=== PATIENT | female | born 2000 | race African-American/Black ===

== ENCOUNTER 2021-07-10 14:44 | Emergency (ER) | payer SELFPAY ==
[2021-07-10 15:38] LABS: Urine Blood Negative (Negative); Urine Glucose Negative (Negative); Urine Protein Negative (Negative); Urine Specific Gravity 1.025 (1.005-1.030)
[2021-07-10 15:41] LABS: Absolute Lymphocytes (CBC) 1.7 K/uL (0.7-4.9); Basophils % 0.5 % (0-1.3); Hematocrit 39.8 % (36.0-45.0); MPV 9.6 fL (7.6-11.3); RBC Red Blood Cell Count 4.97 M/uL (3.86-4.86)
[2021-07-10 15:44] LABS: Protime INR 1.07
[2021-07-10 15:50] LABS: Urine Specific Gravity/Preg 1.025 (1.005-1.030)
[2021-07-10 16:18] LABS: ALT/SGPT 16 U/L (12-78); AST/SGOT 13 U/L (15-37); Albumin 4.1 g/dL (3.4-5.0); Alkaline Phosphatase 89 U/L (45-117); BUN Blood Urea Nitrogen 8 mg/dL (7-18); Bicarbonate 28 mmol/L (21-32); Bilirubin Direct 0.1 mg/dL (0-0.2); Bilirubin Total 0.4 mg/dL (0.2-1.0); Glucose Level 76 mg/dL (74-106); Protein, Total 9.2 g/dL (6.4-8.2); Sodium Level 140 mmol/L (136-145)
[2021-07-10 16:18] LABS: Barbiturates NEGATIVE (NEGATIVE); Benzodiazepines NEGATIVE (NEGATIVE); Cocaine NEGATIVE (NEGATIVE); METHAMPHETAM NEGATIVE (NEGATIVE); Methadone NEGATIVE (NEGATIVE); Opiates NEGATIVE (NEGATIVE); Phencyclidine NEGATIVE (NEGATIVE)
[2021-07-10 16:40] LABS: THC Cannibis POSITIVE (NEGATIVE)
--- NOTE | 2021-07-10 21:52 | ER ---
Nurse's Notes [facility] Name: Yamilka Gonzales Age: 20 yrs Sex: Female : 2000 Arrival Date: 07/10/2021 Time: 14:49 Bed 16 Private MD: Diagnosis: Major depressive disorder, recurrent, mild;Suicidal ideations;Schizophrenia, unspecified Presentation: 07/10 14:56 Chief complaint: Patient states: was at the [facility] and told her psychiatrist iw that she has been having thoughts of killing herself for a couple of weeks , has tried to hurt herself in the past, tried to use a knife but it was dull , is currently on Seroquel and another med but she doesn't take it every day , hx of depression anger issues, and adhd. Coronavirus screen: At this time, the client does not indicate any symptoms associated with coronavirus-19. Ebola Screen: Patient negative for fever greater than or equal to 101.5 degrees Fahrenheit, and additional compatible Ebola Virus Disease symptoms Patient denies exposure to infectious person. Patient denies travel to an Ebola-affected area in the 21 days before illness onset. No symptoms or risks identified at this time. Initial Sepsis Screen: Does the patient meet any 2 criteria? No. Patient's initial sepsis screen is negative. Does the patient have a suspected source of infection? No. Patient's initial sepsis screen is negative. Risk Assessment: Do you want to hurt yourself or someone else? Patient reports no desire to harm self or others. Onset of symptoms was July 10, 2021. 14:56 Method Of Arrival: Law Enforcement: [facility] iw 14:56 Acuity: [place] 2 iw 15:18 Note pt told [facility] and [place] [employer] that she is hearing voices that are telling her iw to kill herself. Triage Assessment: 15:27 General: Appears in no apparent distress. Behavior is calm, cooperative, appropriate kd3 for age. 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 - Social history:: Smoking status: Patient reports the use of cigarette tobacco products, cigars, Patient uses alcohol, occasionally. street drugs, marijuana, has not smoked marijuana in two weeks . Screenin:26 Nutritional screening: No deficits noted. Tuberculosis screening: No symptoms or risk kd3 factors identified. Fall Risk IV access (20 points). 15:38 Abuse screen: Denies threats or abuse. Denies injuries from another. kd3 Assessment: 15:26 Pain: Denies pain. kd3 16:22 Reassessment: pt affirms that she is not currently actively suicidal, however she has kd3 stated that she has had suicidal ideation recently and is concern about her future stat of mind. 17:50 Reassessment: pt currently speaking to [employer] screener on the ipad. bp 18:12 Reassessment: [employer] screener spoke with provider regarding plan. bp 19:31 Reassessment: pt awake and alert, resting quietly, awaiting placement in psychiatric bb facility. 20:00 Reassessment: Dr Arnett at bedside pt states she does not feel suicidal any longer bb she is just going through a hard time and wants to go home to follow up with her psychiatrist. Pt's mother called but no answer. 22:35 Reassessment: Received report from Lillian, thomas resting, rr even and unlabored, call lc1 roque within reach . 23:30 Reassessment: No changes from previously documented assessment. pt still sleeping, lc1 safety measures in place . 07/11 00:30 Reassessment: No changes from previously documented assessment. pt still resting, rr lc1 even and unlabored, call roque within reach. 01:30 Reassessment: No changes from previously documented assessment. pt states she wants her lc1 grandmother Naz to be called, phone number given. 01:50 Reassessment: Grandmother Naz called to update on patient and seek out info on how lc1 to contact mom Claribel. [address] call made with nurse, Naz \\China\\ Claribel. Both agreed that they didn't feel like it was safe for patient to come home and stated they would not come pick her up at patient's request. They elaborated that her depression comes on quickly and then leaves as fast as it comes so she seems okay then the situation repeats itself the next day. Nothing will be resolved unless she gets help and are requesting that we go forward with plans to transfer to psych facility. MD Dr Arnett informed. 02:30 Reassessment: No changes from previously documented assessment. patient awake, watching lc1 tv. 03:30 Reassessment: No changes from previously documented assessment. Patient and/or family lc1 updated on plan of care and expected duration. Pain level reassessed. rr even and unlabored. 04:30 Reassessment: No changes from previously documented assessment. Patient and/or family lc1 updated on plan of care and expected duration. Pain level reassessed. 05:30 Reassessment: No changes from previously documented assessment. Patient and/or family lc1 updated on plan of care and expected duration. Pain level reassessed. patient sleeping. 06:30 Reassessment: No changes from previously documented assessment. Patient and/or family lc1 updated on plan of care and expected duration. Pain level reassessed. pt sleeping, safety measures in place, awaiting placement. 08:57 Reassessment: No changes from previously documented assessment. Patient and/or family ap3 updated on plan of care and expected duration. Pain level reassessed. patient resting eyes closed, respirations even and unlabored. 10:40 Reassessment: mother of patient arrived to patients bedside. ap3 13:03 Reassessment: No changes from previously documented assessment. Patient and/or family ap3 updated on plan of care and expected duration. Pain level reassessed. 15:24 Reassessment: No changes from previously documented assessment. Patient and/or family ap3 updated on plan of care and expected duration. Pain level reassessed. Patient denies pain at this time. 16:44 Reassessment: No changes from previously documented assessment. Patient and/or family ap3 updated on plan of care and expected duration. Pain level reassessed. 18:57 Reassessment: No changes from previously documented assessment. Patient and/or family ap3 updated on plan of care and expected duration. Pain level reassessed. 19:13 Reassessment: Patient appears in no apparent distress at this time. Patient is alert, vg1 oriented x 3, equal unlabored respirations, skin warm/dry/pink. pt was given a beverage. Patient denies pain at this time. 20:45 Reassessment: Pt resting with eyes closed at this time. vg1 22:20 Reassessment: Patient appears in no apparent distress at this time. No changes from vg1 previously documented assessment. 23:20 Reassessment: Patient appears in no apparent distress at this time. Pt resting with vg1 eyes closed. 07/12 00:20 Reassessment: Patient resting in bed, not in apparent distress, eyes closed. fu 02:50 Reassessment: No changes from previously documented assessment. fu 05:15 Reassessment: Patient awake, voided in the restroom. fu 07:00 Reassessment: Patient appears in no apparent distress at this time. Patient and/or jl7 family updated on plan of care and expected duration. Pain level reassessed. Patient is alert, oriented x 3, equal unlabored respirations, skin warm/dry/pink. Pt sitting in bed, denies discomfort at this time. Patient denies pain at this time. 09:00 Reassessment: Pt inquiring about transfer status, states "I'm going crazy in here." Pt mateo denies SI and reports she wants to leave due to transfer taking such a long time. Pt's Grandmother, Naz Gonzales ([phone]), called and reports pt doesn't need to be allowed to just leave, requesting pt to be transferred for mental health treatment. 10:34 Reassessment: Nurse to Nurse with MEAGAN Gonzalez at [facility] completed. jl7 12:00 Reassessment: Pt laying in bed watching TV, no signs of distress noted at this time. jl7 13:19 Reassessment: Pt signed transfer form to [facility], awaiting transportation. jl7 15:30 Reassessment: Patient appears in no apparent distress at this time. No changes from jl7 previously documented assessment. Patient and/or family updated on plan of care and expected duration. Pain level reassessed. Patient is alert, oriented x 3, equal unlabored respirations, skin warm/dry/pink. 17:15 Reassessment: [facility] at bedside to transport pt to [facility]. Security jl7 handed pt's belongings to [facility]. Psych: 07/10 15:33 Subjective: Patient's mood is Pt states feelings of hopelessness but smiles. Objective: kd3 Patient is cooperative, Speech is normal. Interventions: Removed personal items and placed in bag. Patient placed in hospital gown. Searched person for dangerous items. Urine collected and sent for urine drug test. Safety Checks: Patient uses weekly. 15:38 [place] Suicide Severity Screening: In the past month, have you wished you were kd3 or wished you could go to sleep and not wake up? Patient responds "yes." Based off the client's responses additional C-SSRS screening is required. "In the past month, have you actually had any thoughts of killing yourself?" Patient responds "yes." Based off the client's response additional [place] suicide severity screening questions to be further documented on paper forms. "In your lifetime, have you ever done anything, started to do anything, or prepared to do anything to end your life?" Patient responds "yes." Patient reports suicidal intent within 3 past months. Commitment:. Vital Signs: 14:56 Weight 86.18 kg; Height 5 ft. 3 in. (160.02 cm); Pain 0/10; iw 15:26 BP 100 / 61; kd3 15:26 BP 100 / 61; Pulse 74; Resp 16; Temp 98.2; Pulse Ox 100% ; kd3 19:08 BP 98 / 68; Pulse 75; Resp 16; Pulse Ox 100% ; bp 11/18 00:30 BP 105 / 67; Pulse 66; Resp 18; Pulse Ox 98% on R/A; lc1 04:30 BP 91 / 57; Pulse 68; Resp 16; Pulse Ox 100% on R/A; lc1 06:54 BP 98 / 55; Pulse 65; Resp 18; Temp 97.2(O); Pulse Ox 100% on R/A; lc1 16:45 BP 101 / 63; Pulse 67; Temp 98.2(TE); Pulse Ox 100% on R/A; ap3 21:16 BP 96 / 54; Pulse 65; Resp 15; Temp 97.9(O); Pulse Ox 98% on R/A; mh5 07/12 07:45 BP 98 / 62; Pulse 74; Resp 16; Temp 97; Pulse Ox 99% ; Pain 0/10; jl7 07/10 14:56 Body Mass Index 33.66 (86.18 kg, 160.02 cm) iw ED Course: 07/10 14:49 Patient arrived in ED. bd 15:02 Triage completed. iw 15:06 Arm band placed on. iw 15:23 Rudolph Fine PA is PHCP. m 15:23 Nishant Camara MD is Attending Physician. m 15:26 Patient has correct armband on for positive identification. Bed in low position. Call kd3 light in reach. Side rails up X 1. 15:26 Inserted saline lock: 22 gauge antecubital area, using aseptic technique. kd3 15:40 Acetaminophen Sent. kd3 15:40 Basic Metabolic Panel Sent. kd3 15:40 CBC with Diff Sent. kd3 15:40 ETOH Level Sent. kd3 15:40 Hepatic Function Sent. kd3 15:40 PT-INR Sent. kd3 15:40 Ptt, Activated Sent. kd3 15:40 Salicylate Sent. kd3 15:40 Urine Drug Screen Sent. kd3 16:08 SARS-COV-2 RT PCR (Document "Date of Onset" if Symptomatic) Sent. kd3 16:28 contacted [facility] to have a screener evaluate pt. bd 16:54 Cookie Mcgill, MEAGAN is Primary Nurse. kd3 17:40 Emily from [facility] called to arrange virtual screening via Facetime with pt. em1 18:19 Urine --Ancillary (enter results) Sent. bp 18:26 pt clinical information faxed to [facility], [facility], [facility] and [facility]. 21:45 Attending Physician role handed off by Nishant Camara MD [facility] 21:45 Ramiro Arnett MD is Attending Physician. [facility] 21:45 called Millie parker at [phone] no answerr. cs9 22:35 No provider procedures requiring assistance completed. lc1 22:47 called mother again at [phone], no answer. cs9 07/11 01:50 transfer. Safety Checks: Personal items have been removed. The door is open or patient lc1 has been placed in a hallway bed/chair. There are no family/friend visitors at this time. 02:45 [facility] called needing a exclusion form faxed. cs9 03:30 form faxed back at [phone]. cs9 06:50 Report received from Lexi. ap3 06:57 Awaiting: acceptance. lc1 08:54 received call from [facility] letting us know that they are actively working to em1 find pt a bed. 09:18 Primary Nurse role handed off by Cookie Mcgill, MEAGAN ap3 09:18 Dina Clinton, MEAGAN is Primary Nurse. ap3 11:04 Attending Physician role handed off by Ramiro Arnett MD [facility] 11:04 Zack Vance MD is Attending Physician. [facility] 07/12 09:12 Received call from [facility] and was told that they are still working to get pt em1 a bed, I informed them that pt is requesting to be discharged if placement couldn't be found and [facility] said they would contact [facility] to see about securing a bed. 09:53 Faxed updated clinical information to [facility] as requested by pt intake center. em1 13:37 pt accepted to [facility] for psychiatric admission, transfer warrant em1 secured and [facility]. 17:15 IV discontinued, intact, bleeding controlled, No redness/swelling at site. Pressure jl7 dressing applied. Administered Medications: No medications were administered Outcome: 07/10 21:52 ER care complete, transfer ordered by . [facility] 07/12 17:15 Transferred [facility] to other acute care facility: [facility]. Transfer jl7 form completed. Condition: stable Discharge instructions given to patient, Instructed on the need for transfer, Demonstrated understanding of instructions. 17:46 Patient left the ED. jl7 Signatures: Naz Hdz Corey, MD MD cha Rittger, Kevin, MD MD kdr Mickail, Joel, PA PA jmm Lillian Stafford, RN MEAGAN bb Nia Romero, Dima Wall RN em1 Antoine, Lexi 1 Aundrea Pinon Franklin Lorenz RN MEAGAN jl7 Aayush Valladares, Edson Lord RN, Dina Aguirre RN, MEAGAN RHODES ap3 Iliana Tristan, RN MEAGAN busch1 Pau Maldonado 9 Cookie Mcgill, RN MEAGAN kd3
--- NOTE | 2021-07-10 21:52 | EDPHYS ---
Physician Documentation [facility] Name: Yamilka Gonzales Age: 20 yrs Sex: Female : 2000 Arrival Date: 07/10/2021 Time: 14:49 Bed 16 Private MD: ED Physician Zack Vance HPI: 07/10 15:10 This 20 yrs old Black Female presents to ER via [employer] with complaints of jmm Suicidal Ideation. 15:10 The patient presents to the emergency department with suicide ideation. Onset: The jmm symptoms/episode began/occurred gradually, 2 week(s) ago. Past psychiatric history: Psychiatric medications include: seroquel. Associated signs and symptoms: Pertinent positives; anxiety, suicide ideation. This is a 20 year old female with a history of depression, adhd, that presents to the ED with suicidal ideations beginning approx 2 week ago. Patient states her plan would be to find a sharp object and stab herself. Patient admits to not taking her medication occasionally. Recently d/c smoking marijuana. States she is also involved in a criminal investigation. . 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 - Social history:: Smoking status: Patient reports the use of cigarette tobacco products, cigars, Patient uses alcohol, occasionally. street drugs, marijuana, has not smoked marijuana in two weeks . ROS: 15:10 Constitutional: Negative for fever, chills, and weight loss, Cardiovascular: Negative jmm for chest pain, palpitations, and edema, Respiratory: Negative for shortness of breath, cough, wheezing, and pleuritic chest pain. 15:10 Psych: Positive for suicidal ideation. 15:10 All other systems are negative. Exam: 15:10 Constitutional: This is a well developed, well nourished patient who is awake, alert, jmm and in no acute distress. Head/Face: atraumatic. Eyes: EOMI, no conjunctival erythema appreciated ENT: Moist Mucus Membranes Neck: Trachea midline, Supple Chest/axilla: Normal chest wall appearance and motion. Cardiovascular: Regular rate and rhythm. No edema appreciated Respiratory: Normal respirations, no respiratory distress appreciated Abdomen/GI: Non distended, soft Back: Normal ROM Skin: General appearance color normal MS/ Extremity: Moves all extremities, no obvious deformities appreciated, no edema noted to the lower extremities Neuro: Awake and alert, normal gait 15:10 Psych: Behavior/mood is pleasant, cooperative, suicidal. Vital Signs: 14:56 Weight 86.18 kg; Height 5 ft. 3 in. (160.02 cm); Pain 0/10; iw 15:26 BP 100 / 61; kd3 15:26 BP 100 / 61; Pulse 74; Resp 16; Temp 98.2; Pulse Ox 100% ; kd3 19:08 BP 98 / 68; Pulse 75; Resp 16; Pulse Ox 100% ; bp / 00:30 BP 105 / 67; Pulse 66; Resp 18; Pulse Ox 98% on R/A; lc1 04:30 BP 91 / 57; Pulse 68; Resp 16; Pulse Ox 100% on R/A; lc1 06:54 BP 98 / 55; Pulse 65; Resp 18; Temp 97.2(O); Pulse Ox 100% on R/A; lc1 16:45 BP 101 / 63; Pulse 67; Temp 98.2(TE); Pulse Ox 100% on R/A; ap3 21:16 BP 96 / 54; Pulse 65; Resp 15; Temp 97.9(O); Pulse Ox 98% on R/A; mh5 07/12 07:45 BP 98 / 62; Pulse 74; Resp 16; Temp 97; Pulse Ox 99% ; Pain 0/10; jl7 07/10 14:56 Body Mass Index 33.66 (86.18 kg, 160.02 cm) iw MDM: 07/10 15:30 Patient medically screened. [facility] 07/11 17:35 Data reviewed: vital signs, nurses notes. Counseling: I had a detailed discussion with kdr the patient and/or guardian regarding: the historical points, exam findings, and any diagnostic results supporting the discharge/admit diagnosis, lab results, radiology results, the need to transfer to another facility. ED course: Patient continues to be stable in the ED. She has not required any interventions today. She has been resting comfortably and has been cooperative with staff. Her vital signs continue to be stable and again she is been cooperative and without threat to herself or others. She continues to be on the waiting list at [facility]. 07/12 06:22 ED course: Resting comfortably, no acute distress, vital signs stable, cooperative.. mh7 07/10 15:10 Order name: Acetaminophen; Complete Time: 16:20 07/10 15:10 Order name: Basic Metabolic Panel; Complete Time: 16:20 07/10 15:10 Order name: CBC with Diff; Complete Time: 15:43 07/10 15:10 Order name: ETOH Level; Complete Time: 16:20 07/10 15:10 Order name: Hepatic Function; Complete Time: 16:20 07/10 15:10 Order name: PT-INR; Complete Time: 15:47 07/10 15:10 Order name: Ptt, Activated; Complete Time: 15:47 07/10 15:10 Order name: Salicylate; Complete Time: 16:23 07/10 15:10 Order name: Urine Drug Screen; Complete Time: 16:42 07/10 15:10 Order name: EKG; Complete Time: 15:11 07/10 15:31 Order name: SARS-COV-2 RT PCR (Document "Date of Onset" if Symptomatic); Complete Time: jm 16:41 07/10 15:37 Order name: Urine Dipstick-Ancillary; Complete Time: 15:39 EDMI 07/10 15:43 Order name: Urine --Ancillary (enter results) 07/10 15:43 Order name: Urine --Ancillary; Complete Time: 15:55 EDMI 07/10 15:10 Order name: EKG - Nurse/Tech; Complete Time: 15:40 07/10 15:10 Order name: IV Saline Lock; Complete Time: 15:40 07/10 15:10 Order name: Labs collected and sent; Complete Time: 15:40 07/10 15:10 Order name: Suicide Screening ([place]); Complete Time: 15:40 07/10 15:10 Order name: Urine Dipstick-Ancillary (obtain specimen); Complete Time: 15:40 07/11 09:16 Order name: Diet Finger Food; Complete Time: 09:17 aa5 07/12 08:10 Order name: Diet Finger Food; Complete Time: 08:11 jl7 07/12 10:26 Order name: Diet Finger Food; Complete Time: 10:26 jl7 Administered Medications: No medications were administered Disposition: 17:55 Co-signature as Attending Physician, Zack Vance MD I agree with the assessment and kdr plan of care. Disposition Summary: 07/10/21 21:52 Transfer Ordered Transfer Location: Psych Facility roya Reason: Higher level of care roya Condition: Stable roya Problem: new roya Symptoms: have improved roya Accepting Physician: to psych(07/12/21 17:46) jl7 Diagnosis - Major depressive disorder, recurrent, mild roya - Suicidal ideations roya - Schizophrenia, unspecified roya Forms: - Medication Reconciliation Form roya - SBAR form roya Signatures: Dispatcher [employer] Ramiro Hogan MD MD cha Rittger, Kevin, MD MD kdr Mickail, Joel, PA PA jmm Williams, Irene, RN RN Franklin Ceron RN RN jl7 Rony Nowak MD MD 7 Corrections: (The following items were deleted from the chart) 17:46 07/10 21:52 to psych roya galindo
[2021-07-12 18:26] VITALS: BP 98/62; TEMP 97; O2SAT 99
== END 2021-07-12 17:46 ==
LOC: EDBD 14:44 → ER 14:44
DX: F33.0 Major depressive disorder, recurrent, mild (principal); F20.9 Schizophrenia, unspecified; F17.290 Nicotine dependence, other tobacco product, uncomplicated
CPT/HCPCS: 36415; 80048; 80076; 80307; 80320; 80329; 81003; 81025; 85025; 85610; 85730; 93005; 99285; U0003